=== PATIENT | female | born 1965 | race Caucasian/White ===

== ENCOUNTER 2017-04-21 11:53 | Emergency (ER) | payer SELFPAY ==
--- NOTE | ~2017-04-21 | CR181 ---
[facility] A Service of [facility] RADIOLOGY TEXT RESULTS PATIENT: ISABELLE GANN LOCATION: [facility] : 69 UNIT #: [id number] AGE: [address]: Ana Silverman SEX: F ORDER DR: [id number] [facility] [address] [place], [place] [address] [id number] E MR#: [id number] Acc #: [id number] NAME: ISABELLE GANN : 1965 SEX: F STUDY DATE/TIME: 04/21/2017 12:39 UNIT: [facility] ROOM: STUDY DESCRIPTION: CR Lumbar Spine 2 or 3 Views Attending Physician: Ana Silverman Pa-C Ordering Physician: Ana Silverman Pa-C MEDICAL IMAGING REPORT This report is preliminary unless electronic signature is present EXAM Lumbar spine 04/21 INDICATIONS Low back pain and left leg pain for the last 3 years. No trauma. TECHNIQUE 3 views of the lumbar spine were obtained. COMPARISON STUDIES No comparison. FINDINGS The patient is fused from L4 through S1 with bilateral pedicle screws. Laminectomies are noted at L4 and L5. Alignment is normal. No compression fractures. IMPRESSION Postoperative changes from L4 through S1. No acute fracture or malalignment is seen. Dictated by... Nemesio Neri Jr., M.D. THIS IS AN ELECTRONICALLY VERIFIED REPORT Nemesio Neri Jr., M.D. at 04/22/2017 10:17 AM RLK/pcl TD: 04/21/2017 17:02 JOB #: [id number] [facility] A Service of [facility] RADIOLOGY TEXT RESULTS PATIENT: ISABELLE GANN LOCATION: [facility] : 69 UNIT #: [id number] AGE: [address]: Ana Silverman SEX: F ORDER DR: MEDICAL IMAGING REPORT Page 1 of 1 COPY
[2017-04-21 12:55] LABS: URINE SOURCE CLEAN CATCH
[2017-04-21 13:05] LABS: URINE APPEARANCE CLEAR; URINE BILIRUBIN NEG (NEG); URINE BLOOD NEG (NEG); URINE COLOR YELLOW; URINE GLUCOSE NEG (NEG); URINE KETONE NEG (NEG); URINE LEUKOCYTE ESTERASE 1+ (NEG); URINE NITRATE NEG (NEG); URINE PH 6.5 (5-8); URINE PROTEIN NEG (NEG); URINE SPECIFIC GRAVITY 1.005 (1.003-1.035); URINE UROBILINOGEN 0.2 MG/DL (NEG)
[2017-04-21 13:07] LABS: CULTURE INDICATED? YES; URBCS1 AUWI 0-2 /[HPF] (0-2); URINE BACTERIA AUWI 1+ (NEGATIVE); URINE SQUAMOUS EPITHELIAL CELL OCC /[HPF]
[2017-04-21 13:24] LABS: AMPHETAMINE NEG (NEG); BARBITURATES NEG (NEG); BENZODIAZEPINES NEG (NEG); COCAINE NEG (NEG); MARIJUANA NEG (NEG); OPIATES NEG (NEG); TRICYCLIC ANTIDEPRESSANTS NEG (NEG); U METHADONE NEG (NEG)
== END 2017-04-21 14:15 | disposition home or self-care (01) ==
LOC: CFTX 11:53 → CED 11:53 → CFTX 13:19
PROVIDERS: Physician Assistant Medical
DX: M54.5 Low back pain (principal); G89.29 Other chronic pain; Z90.710 Acquired absence of both cervix and uterus; F17.210 Nicotine dependence, cigarettes, uncomplicated; Z88.5 Allergy status to narcotic agent; Z88.8 Allergy status to other drugs, medicaments and biological substances
CPT/HCPCS: 72100; 80307; 81003; 87086; 99283